=== PATIENT | female | born 1945 | race Caucasian/White ===

== ENCOUNTER → 2016-06-27 | Outpatient (CLI) | payer OTHER ==
[~2016-06-27] MED LIST: ALPRAZOLAM0.25 MG PO; B-121000 MC1 PO; BETAPACE PO; BREO ELLIPTA I1 EACH INH; DIGOX0.25 MG PO; IPRAT-ALBUT 0.5-3 ML INH; LASIX20 MG PO; MELATONIN3 MG PO; METOPROLOL TART25 MG PO; NEXIUM PO; POTASSIUM CHLO20 ME1 PO; ROSUVASTATIN CA20 MG; SERTRALINE HCL50 MG PO; VITAMIN D31000 UNIT PO; WARFARIN SODIUM3 M1 PO; XARELTO20 MG PO; ZYRTEC10 M2 PO
--- NOTE | ~2016-06-27 | CR229 ---
[facility] A Service of [facility] RADIOLOGY TEXT RESULTS PATIENT: CORIN SIMMONS LOCATION: [facility] : 47 UNIT #: [id number] AGE: [address]: Leny GautamP SEX: F ORDER DR: [id number] [facility] [address] [place], [place] [address] [id number] O MR#: [id number] Acc #: [id number] NAME: CORIN SIMMONS : 1945 SEX: F STUDY DATE/TIME: 06/27/2016 16:22 UNIT: [facility] ROOM: STUDY DESCRIPTION: CR Shoulder Min 2 View Lt Attending Physician: Leny Gautam A.P.R.N. Referring Physician: Leny Gautam A.P.R.N. Ordering Physician: Leny Gautam A.P.R.N. Primary Care Physician: Ellie Pichardo M.D. MEDICAL IMAGING REPORT This report is preliminary unless electronic signature is present EXAM Left shoulder, 06/27. HISTORY Chronic shoulder pain radiating to the fingers for one month. No trauma. Numbness in the fingers. FINDINGS 3 view of the left shoulder were obtained. 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 There is no fracture or dislocation. There is no AC joint separation. IMPRESSION AC joint arthropathy, otherwise negative left shoulder. Dictated by... Shayan Ramey Jr., M.D. THIS IS AN ELECTRONICALLY VERIFIED REPORT Shayan Ramey Jr., M.D. at 06/28/2016 4:58 PM SASCHA/jonas TD: 06/28/2016 10:08 JOB #: [id number] MEDICAL IMAGING REPORT Page 1 of 1 COPY
== END | disposition home or self-care (01) ==
LOC: CRAD 15:57
DX: M25.512 Pain in left shoulder (principal); M19.012 Primary osteoarthritis, left shoulder
CPT/HCPCS: 73030